=== PATIENT | male | born 1950 | race African-American/Black ===

== ENCOUNTER 2016-09-02 11:06 | Emergency (ER) | payer MEDICARE, MEDICAID ==
[~2016-09-02] VITALS: Ht 170.2 cm; Wt 59.0 kg
[~2016-09-02 11:06] MED LIST: flomax; vicodin
[2016-09-02] MEDS ORDERED: CARISOPRODOL 350 MG TABLET PO ONE (11:45)
[2016-09-02] MEDS ORDERED: HYDROCODONE/ACETAMINOPHEN 5/325MG TABLET PO ONE (11:45)
[2016-09-02 14:31] VITALS: BP 133/98
== END 2016-09-02 15:45 | disposition home or self-care (01) ==
LOC: ER 13:03
DX: M54.12 Radiculopathy, cervical region (principal); F12.10 Cannabis abuse, uncomplicated; F14.10 Cocaine abuse, uncomplicated
CPT/HCPCS: 72125; 99284

== ENCOUNTER 2016-10-31 14:56 | Emergency (ER) | payer MEDICARE, OTHER ==
[~2016-10-31] VITALS: Ht 172.7 cm; Wt 72.0 kg
[~2016-10-31 14:56] MED LIST changes: +IOHEXOL-300 100 ML BOTTLE ONE; +SODIUM CHLORIDE 0.9% 10ML VIAL ONE
[2016-10-31 16:17] LABS: BASOPHILS % 0.9 % (0.0-2.0); EOSINOPHILS % 2.7 % (0.0-5.0); HEMATOCRIT. 39.5 % (42.0-52.0); HEMOGLOBIN. 12.8 g/dL (14.0-18.0); LYMPHOCYTES % 18.3 % (20.0-50.0); MEAN CORPUSCULAR HEMOGLOBIN 27.5 pg (28.0-32.0); MEAN CORPUSCULAR HGB CONC 32.4 g/dL (31.0-37.0); MEAN PLATELET VOLUME 7.6 fl (7.4-10.4); MONOCYTES % 8.4 % (2.0-8.0); NEUTROPHILS % 69.7 % (40.0-76.0); PLATELET 253 x1000/uL (130-400); RED BLOOD CELL COUNT 4.64 mill/uL (4.7-6.1); RED CELL DISTRIBUTION WIDTH 13.1 % (11.6-14.6); WHITE BLOOD COUNT 7.9 x1000/uL (4.5-11.0)
[2016-10-31 16:18] LABS: CHLORIDE 106 mEq/L (98-107)
[2016-10-31 16:20] LABS: INDEX HEMOLYSI 1 (1-3); INDEX ICTERIC 1 (1-4); INDEX LIPEMIC 1 (1-3)
[2016-10-31 16:23] LABS: ANION GAP 10; CALCIUM 8.3 mg/dL (8.5-10.1); CARBON DIOXIDE 26 mEq/L (21-32); LIPASE 490 IU/L (73-393); UREA NITROGEN BLOOD 24 mg/dL (7-21)
[2016-10-31 16:25] LABS: eGFR > 60 mL/min (>60)
[2016-10-31] MEDS ORDERED: MORPHINE SULFATE 4 MG/ML CPJ (NOT FOR IM USE) IV ONE (17:15)
[2016-10-31 18:16] LABS: CLARITY URINE CLEAR (CLEAR); COLOR URINE YELLOW (YELLOW); GLUCOSE URINE NEGATIVE (NEGATIVE); KETONES URINE NEGATIVE (NEGATIVE); LEUKOCYTE ESTERASE URINE NEGATIVE (NEGATIVE); NITRITE URINE NEGATIVE (NEGATIVE); OCCULT BLOOD URINE 3+ (NEGATIVE); PROTEIN URINE NEGATIVE (NEGATIVE); SPECIFIC GRAVITY URINE 1.021 (1.005-1.030)
[2016-10-31 18:27] LABS: *AMPHETAMINES SCREEN URINE NEGATIVE (NEGATIVE); *BARBITURATES SCREEN URINE NEGATIVE (NEGATIVE); *BENZODIAZEPINES SCREEN URINE NEGATIVE (NEGATIVE); *COCAINE SCREEN URINE PRESUMTIVE POSITIVE (NEGATIVE); CANNABINOID URINE SCREEN NEGATIVE (NEGATIVE); ECSTASY MDMA SCREEN URINE NEGATIVE (NEGATIVE); METHADONE URINE SCREEN NEGATIVE (NEGATIVE); OPIATES URINE SCREEN NEGATIVE (NEGATIVE); PHENCYCLIDINE URINE SCREEN NEGATIVE (NEGATIVE)
[2016-10-31 18:59] LABS: BACTERIA URINE TRACE; SQUAMOUS EPITHELIAL CELL URINE RARE /lpf (RARE/1+); WBC URINE 0-2 /hpf (0-2)
[2016-10-31] MEDS ORDERED: SODIUM CHLORIDE 0.9% 1000ML BAG (SEPSIS BOLUS) IV ONE (20:45)
[2016-10-31 21:38] LABS: PROTHROMBIN TIME 10.7 sec
[2016-10-31 22:29] VITALS: BP 115/66
== END 2016-10-31 22:50 | disposition short-term general hospital (02) ==
LOC: ER 17:40
DX: S20.212A Contusion of left front wall of thorax, initial encounter (principal); W50.1XXA Accidental kick by another person, initial encounter; F17.210 Nicotine dependence, cigarettes, uncomplicated; Y93.89 Activity, other specified; Y92.9 Unspecified place or not applicable; Y99.8 Other external cause status
CPT/HCPCS: 36415; 71101; 71260; 74177; 80048; 80305; 81001; 83690; 85025; 85610; 86850; 86900; 86901; 96361; 96374; 99285; A4216; G0482; J2270; J7030; Q9967

== ENCOUNTER 2018-03-04 22:25 | Inpatient (IN) | payer MEDICARE, MEDICAID ==
[~2018-03-04] VITALS: Ht 170.2 cm; Wt 58.5 kg
[~2018-03-04 22:25] MED LIST changes: -IOHEXOL-300 100 ML BOTTLE ONE; -SODIUM CHLORIDE 0.9% 10ML VIAL ONE
[2018-03-05] MEDS ORDERED: SODIUM CHLORIDE 0.9% 1,000 ML IV ONE (00:18)
[2018-03-05] MEDS ORDERED: MORPHINE SULFATE 4 MG/ML CPJ (NOT FOR IM USE) IV STA (00:18)
[2018-03-05] MEDS ORDERED: ONDANSETRON HCL 4MG/2ML INJ IV STA (00:18)
[2018-03-05] MEDS ORDERED: DIATR MEGLU/DIATRIZOATE SOLN 30ML ONE (00:47)
[2018-03-05] MEDS ORDERED: METOCLOPRAMIDE HCL 10MG/2ML VIAL IV ONE (01:15)
[2018-03-05 01:28] LABS: BASOPHILS % 0.6 % (0.0-2.0); EOSINOPHILS % 0.5 % (0.0-5.0); HEMOGLOBIN. 13.1 g/dL (14.0-18.0); MEAN CORPUSCULAR HEMOGLOBIN 28.3 pg (28.0-32.0); MEAN CORPUSCULAR VOLUME 86.4 fL (80.0-94.0); MEAN PLATELET VOLUME 8.3 fl (7.4-10.4); MONOCYTES % 4.7 % (2.0-8.0); NEUTROPHILS % 82.2 % (40.0-76.0); PLATELET 282 x1000/uL (130-400); RED BLOOD CELL COUNT 4.62 mill/uL (4.7-6.1); RED CELL DISTRIBUTION WIDTH 13.1 % (11.6-14.6)
[2018-03-05 01:31] LABS: CHLORIDE 106 mEq/L (98-107)
[2018-03-05 01:34] LABS: PROTHROMBIN TIME 10.2 sec (9.1-11.1)
[2018-03-05] MEDS ORDERED: KETOROLAC 30MG/ML VIAL IV ONE (02:30)
[2018-03-05] MEDS ORDERED: LORAZEPAM 2MG/ML CPJ IV ONE (02:30)
[2018-03-05 03:12] LABS: CLARITY URINE CLEAR (CLEAR); COLOR URINE YELLOW (YELLOW); KETONES URINE 1+ (NEGATIVE); LEUKOCYTE ESTERASE URINE NEGATIVE (NEGATIVE); NITRITE URINE NEGATIVE (NEGATIVE); OCCULT BLOOD URINE NEGATIVE (NEGATIVE); PH URINE 5.5 (4.5-8.0); PROTEIN URINE NEGATIVE (NEGATIVE); UROBILINOGEN URINE 0.2 E.U./dL (0.2-1.0)
[2018-03-05] MEDS ORDERED: IOHEXOL-300 100 ML BOTTLE ONE (03:59)
[2018-03-05] MEDS ORDERED: SODIUM CHLORIDE 0.9% 1,000 ML IV SCH (05:16)
[2018-03-05] MEDS ORDERED: DIPHENHYDRAMINE 50MG/ML VIAL IV PRN (09:30)
[2018-03-05] MEDS: PANTOPRAZOLE SODIUM 40 MG/VIAL IV SCH (09:40)
[2018-03-05] MEDS: ONDANSETRON HCL 4MG/2ML INJ IV PRN ×2 (10:08→17:38)
[2018-03-05] MEDS: DEXT 5%/0.45% NACL KCL 20MEQ/L 1,000 ML IV SCH ×2 (10:44→17:38)
[2018-03-05] MEDS: MORPHINE SULFATE 4 MG/ML CPJ (NOT FOR IM USE) IV PRN (14:25)
[2018-03-05 15:13] VITALS: BP 161/81
[2018-03-05] MEDS ORDERED: IBUP-2321 PO (15:26)
[2018-03-05 16:00] VITALS: BP 161/81
[2018-03-05] MEDS ORDERED: HYDRALAZINE 20MG/ML VIAL IV PRN (16:00)
[2018-03-05 16:34] VITALS: BP 145/75
[2018-03-05 20:00] VITALS: BP 140/86
[2018-03-06] VITALS: BP 138/60
[2018-03-06] MEDS: DEXT 5%/0.45% NACL KCL 20MEQ/L 1,000 ML IV SCH ×2 (00:48→08:29)
[2018-03-06] MEDS: MORPHINE SULFATE 4 MG/ML CPJ (NOT FOR IM USE) IV PRN ×3 (02:32→14:55)
[2018-03-06 04:00] VITALS: BP 133/81
[2018-03-06 07:06] LABS: BASOPHILS % 0.3 % (0.0-2.0); EOSINOPHILS % 0.4 % (0.0-5.0); HEMATOCRIT. 41.4 % (42.0-52.0); LYMPHOCYTES % 13.6 % (20.0-50.0); MEAN CORPUSCULAR HEMOGLOBIN 28.8 pg (28.0-32.0); MEAN PLATELET VOLUME 8.4 fl (7.4-10.4); MONOCYTES % 11.8 % (2.0-8.0); NEUTROPHILS % 73.9 % (40.0-76.0); PLATELET 294 x1000/uL (130-400); RED BLOOD CELL COUNT 4.86 mill/uL (4.7-6.1)
[2018-03-06 07:19] LABS: CHLORIDE 101 mEq/L (98-107)
[2018-03-06 08:00] VITALS: BP 126/69
[2018-03-06] MEDS: PANTOPRAZOLE SODIUM 40 MG/VIAL IV SCH (08:28)
[2018-03-06 12:00] VITALS: BP 105/69
[2018-03-06] MEDS ORDERED: ACETAMINOPHEN 650MG SUPP PR PRN (14:45)
[2018-03-06 14:55] VITALS: BP 140/81
[2018-03-06] MEDS: POTASSIUM CHLORIDE INJ 30 MEQ in DEXT 5%/0.9% NACL 1,000 ML IV SCH (17:02)
[2018-03-06 20:00] VITALS: BP 150/87
[2018-03-07] VITALS (7 sets, daily range): BP systolic 105–145; BP diastolic 76–93
[2018-03-07] MEDS: MORPHINE SULFATE 4 MG/ML CPJ (NOT FOR IM USE) IV PRN ×3 (01:46→16:35)
[2018-03-07] MEDS: POTASSIUM CHLORIDE INJ 30 MEQ in DEXT 5%/0.9% NACL 1,000 ML IV SCH ×2 (05:13→15:19)
[2018-03-07 06:31] LABS: HEMATOCRIT. 41.1 % (42.0-52.0); HEMOGLOBIN. 13.9 g/dL (14.0-18.0); MEAN CORPUSCULAR HEMOGLOBIN 28.9 pg (28.0-32.0); MEAN CORPUSCULAR VOLUME 85.4 fL (80.0-94.0); MEAN PLATELET VOLUME 8.5 fl (7.4-10.4); PLATELET 292 x1000/uL (130-400); RED BLOOD CELL COUNT 4.82 mill/uL (4.7-6.1); RED CELL DISTRIBUTION WIDTH 12.7 % (11.6-14.6)
[2018-03-07 08:02] LABS: CHLORIDE 102 mEq/L (98-107)
[2018-03-07] MEDS: PANTOPRAZOLE SODIUM 40 MG/VIAL IV SCH (09:28)
[2018-03-07] MEDS: ONDANSETRON HCL 4MG/2ML INJ IV PRN (10:10)
[2018-03-08] MEDS: MORPHINE SULFATE 4 MG/ML CPJ (NOT FOR IM USE) IV PRN ×4 (00:02→22:09)
[2018-03-08] MEDS: POTASSIUM CHLORIDE INJ 30 MEQ in DEXT 5%/0.9% NACL 1,000 ML IV SCH (01:55)
[2018-03-08 03:50] VITALS: BP 133/70
[2018-03-08] MEDS ORDERED: BUPIVACAINE HCL 0.5% (5MG/ML) 50ML ONE (07:28)
[2018-03-08] MEDS ORDERED: SKIN ADHESIVE 0.7 GM EA TOP ONE (07:28)
[2018-03-08 08:00] VITALS: BP 148/87
[2018-03-08] MEDS: FAMOTIDINE 20MG/2ML VIAL IV SCH ×2 (08:01→22:09)
[2018-03-08] MEDS ORDERED: ACETAMINOPHEN 650MG SUPP PR PRN (09:45)
[2018-03-08] MEDS ORDERED: ONDANSETRON HCL 4MG/2ML INJ IV PRN (09:45)
[2018-03-08] MEDS ORDERED: FENTANYL CITRATE/PF 50MCG/ML 5ML VIAL ONE (10:10)
[2018-03-08] MEDS ORDERED: MIDAZOLAM HCL 2 MG/2 ML VIAL ONE (10:10)
[2018-03-08] MEDS ORDERED: ONDANSETRON HCL 4MG/2ML INJ ONE (10:53)
[2018-03-08] MEDS ORDERED: DEXAMETHASONE 4MG/ML 1ML VIAL ONE (10:53)
[2018-03-08] MEDS ORDERED: CEFAZOLIN SODIUM 1000MG/VIAL ONE (10:53)
[2018-03-08] MEDS ORDERED: KETOROLAC 30MG/ML VIAL ONE (10:53)
[2018-03-08] MEDS ORDERED: METOCLOPRAMIDE HCL 10MG/2ML VIAL ONE (10:53)
[2018-03-08] MEDS ORDERED: LIDOCAINE HCL/PF 1% 10 MG/ML 5ML VIAL ONE (10:53)
[2018-03-08] MEDS ORDERED: ETOMIDATE 2MG/ML 10ML VIAL IV ONE (10:53)
[2018-03-08] MEDS ORDERED: VECURONIUM BROMIDE 10 MG/VIAL IV ONE (10:53)
[2018-03-08] MEDS ORDERED: GLYCOPYRROLATE 0.2 MG/ML 2ML VIAL ONE (10:54)
[2018-03-08] MEDS ORDERED: NEOSTIGMINE METHYLSULFATE 1MG/ML 10 ML VIAL ONE (10:54)
[2018-03-08] MEDS ORDERED: FENTANYL CITRATE/PF 50MCG/ML 2ML VIAL ONE (11:18)
[2018-03-08] MEDS ORDERED: DIPHENHYDRAMINE 50MG/ML VIAL ONE (11:23)
[2018-03-08] MEDS ORDERED: FENTANYL CITRATE/PF 50MCG/ML 2ML VIAL IV PRN (11:30)
[2018-03-08 12:00] VITALS: BP 127/83
[2018-03-08] MEDS: DEXT 5%/0.45% NACL KCL 20MEQ/L 1,000 ML IV SCH ×2 (14:51→22:10)
[2018-03-08 16:00] VITALS: BP 119/78
[2018-03-08 20:00] VITALS: BP 113/70
[2018-03-09] VITALS (7 sets, daily range): BP systolic 110–121; BP diastolic 69–81
[2018-03-09] MEDS: MORPHINE SULFATE 4 MG/ML CPJ (NOT FOR IM USE) IV PRN ×3 (04:55→22:14)
[2018-03-09] MEDS: DEXT 5%/0.45% NACL KCL 20MEQ/L 1,000 ML IV SCH ×2 (06:37→16:24)
[2018-03-09] MEDS: FAMOTIDINE 20MG/2ML VIAL IV SCH ×3 (09:00→22:08)
[2018-03-09 11:43] LABS: BASOPHILS % 0.3 % (0.0-2.0); EOSINOPHILS % 0.5 % (0.0-5.0); HEMATOCRIT. 39.9 % (42.0-52.0); HEMOGLOBIN. 13.4 g/dL (14.0-18.0); LYMPHOCYTES % 8.8 % (20.0-50.0); MEAN CORPUSCULAR HEMOGLOBIN 28.9 pg (28.0-32.0); MEAN CORPUSCULAR VOLUME 85.8 fL (80.0-94.0); MEAN PLATELET VOLUME 8.4 fl (7.4-10.4); MONOCYTES % 14.9 % (2.0-8.0); NEUTROPHILS % 75.5 % (40.0-76.0); PLATELET 290 x1000/uL (130-400); RED BLOOD CELL COUNT 4.65 mill/uL (4.7-6.1); RED CELL DISTRIBUTION WIDTH 12.6 % (11.6-14.6)
[2018-03-09 11:59] LABS: CHLORIDE 100 mEq/L (98-107)
[2018-03-09 14:08] LABS: PLATELET ESTIMATE NORMAL
[2018-03-09] MEDS: DEXT 5%/0.9% NACL 1,000 ML IV SCH (21:56)
[2018-03-10] VITALS: BP 115/70
[2018-03-10 04:00] VITALS: BP 115/60
[2018-03-10] MEDS: DEXT 5%/0.9% NACL 1,000 ML IV SCH ×2 (05:19→17:55)
[2018-03-10] MEDS: MORPHINE SULFATE 4 MG/ML CPJ (NOT FOR IM USE) IV PRN ×3 (06:03→23:06)
[2018-03-10 08:00] VITALS: BP 128/76
[2018-03-10] MEDS: FAMOTIDINE 20MG/2ML VIAL IV SCH ×2 (09:08→21:19)
[2018-03-10 12:00] VITALS: BP 130/77
[2018-03-10 16:00] VITALS: BP 114/61
[2018-03-10 20:00] VITALS: BP 105/66
[2018-03-11] VITALS: BP 102/75
[2018-03-11] MEDS: DEXT 5%/0.9% NACL 1,000 ML IV SCH ×3 (01:49→22:37)
[2018-03-11 04:00] VITALS: BP 110/78
[2018-03-11 08:00] VITALS: BP 128/76
[2018-03-11] MEDS: MORPHINE SULFATE 4 MG/ML CPJ (NOT FOR IM USE) IV PRN ×2 (09:24→14:52)
[2018-03-11] MEDS: FAMOTIDINE 20MG/2ML VIAL IV SCH ×2 (09:24→20:56)
[2018-03-11 12:00] VITALS: BP 131/81
[2018-03-11 15:55] VITALS: BP 147/78
[2018-03-11 20:00] VITALS: BP 137/84
[2018-03-11] MEDS: ONDANSETRON HCL 4MG/2ML INJ IV PRN (21:47)
[2018-03-12] VITALS: BP 102/67
[2018-03-12] MEDS: MORPHINE SULFATE 4 MG/ML CPJ (NOT FOR IM USE) IV PRN ×3 (00:45→22:43)
[2018-03-12 04:00] VITALS: BP 100/66
[2018-03-12 07:13] LABS: HEMATOCRIT. 34.7 % (42.0-52.0); HEMOGLOBIN. 11.5 g/dL (14.0-18.0); MEAN CORPUSCULAR HEMOGLOBIN 28.5 pg (28.0-32.0); MEAN CORPUSCULAR VOLUME 85.6 fL (80.0-94.0); MEAN PLATELET VOLUME 7.8 fl (7.4-10.4); PLATELET 361 x1000/uL (130-400); RED BLOOD CELL COUNT 4.05 mill/uL (4.7-6.1); RED CELL DISTRIBUTION WIDTH 12.6 % (11.6-14.6)
[2018-03-12 07:54] VITALS: BP 130/67
[2018-03-12] MEDS: FAMOTIDINE 20MG/2ML VIAL IV SCH ×2 (08:09→20:42)
[2018-03-12] MEDS: DEXT 5%/0.9% NACL 1,000 ML IV SCH ×3 (08:09→20:42)
[2018-03-12 09:17] LABS: CHLORIDE 105 mEq/L (98-107)
[2018-03-12 12:00] VITALS: BP 128/84
[2018-03-12 16:00] VITALS: BP 117/74
[2018-03-12 20:00] VITALS: BP 138/81
[2018-03-13] VITALS: BP 130/69
[2018-03-13 04:00] VITALS: BP 127/77
[2018-03-13] MEDS: DEXT 5%/0.9% NACL 1,000 ML IV SCH ×2 (04:30→17:28)
[2018-03-13 08:19] VITALS: BP 132/85
[2018-03-13 08:42] LABS: PLATELET ESTIMATE NORMAL
[2018-03-13] MEDS: FAMOTIDINE 20MG/2ML VIAL IV SCH ×2 (09:36→20:50)
[2018-03-13] MEDS: MORPHINE SULFATE 4 MG/ML CPJ (NOT FOR IM USE) IV PRN (09:36)
[2018-03-13 11:30] VITALS: BP 138/83
[2018-03-13 15:51] VITALS: BP 134/89
[2018-03-13] MEDS ORDERED: MORPHINE SULFATE 4 MG/ML CPJ (NOT FOR IM USE) IV PRN (17:30)
[2018-03-13 20:00] VITALS: BP 119/87
[2018-03-14] VITALS: BP 140/89
[2018-03-14 04:00] VITALS: BP 128/85
[2018-03-14] MEDS: DEXT 5%/0.9% NACL 1,000 ML IV SCH ×2 (05:42→22:46)
[2018-03-14 08:00] VITALS: BP 112/79
[2018-03-14] MEDS: FAMOTIDINE 20MG/2ML VIAL IV SCH ×2 (09:40→21:00)
[2018-03-14 11:47] VITALS: BP 134/74
[2018-03-14 16:00] VITALS: BP 135/89
[2018-03-14 20:00] VITALS: BP 134/89
[2018-03-15 00:16] VITALS: BP 116/67
[2018-03-15 04:00] VITALS: BP 122/76
[2018-03-15 08:00] VITALS: BP 103/72
[2018-03-15] MEDS: FAMOTIDINE 20MG/2ML VIAL IV SCH (08:30)
[2018-03-15] MEDS: DEXT 5%/0.9% NACL 1,000 ML IV SCH (08:32)
== END 2018-03-15 14:15 | disposition left against medical advice (07) | DRG 335 ==
LOC: ER 22:38 → 8WST 03-05 05:18 → EDBEDREQ 03-05 05:20 → ENRESERV 03-05 14:07
PROVIDERS: ADMIT Internal Medicine; ATTEND Internal Medicine
PROC: 0DN80ZZ Release Small Intestine, Open Approach (ICD-10-PCS; principal; 2018-03-08 09:30)
DX: K56.51 Intestinal adhesions [bands], with partial obstruction (principal); K65.9 Peritonitis, unspecified; K56.7 Ileus, unspecified; I10 Essential (primary) hypertension; Z53.21 Procedure and treatment not carried out due to patient leaving prior to being seen by health care provider; M17.0 Bilateral primary osteoarthritis of knee; Z90.81 Acquired absence of spleen; Z79.899 Other long term (current) drug therapy
CPT/HCPCS: 36415; 74018; 74177; 80048; 80053; 81003; 83605; 83690; 83735; 84100; 85025; 85610; 87077; 96361; 96374; 96375; 97162; 99291; C1893; C2617; C9113; J0690; J1100; J1200; J1885; J2060; J2250; J2270; J2405; J2710; J2765; J3010; J3480; J3490; J7030; J7042; Q9963; Q9967

== ENCOUNTER 2019-02-07 20:43 | Emergency (ER) | payer BC, MEDICAID ==
[~2019-02-07] VITALS: Ht 167.6 cm; Wt 75.0 kg
[~2019-02-07 20:43] MED LIST changes: +IBUP-2321 PO; -flomax; -vicodin
[2019-02-07] MEDS ORDERED: MORPHINE SULFATE 4 MG/ML CPJ (NOT FOR IM USE) IV STA (21:24)
[2019-02-07] MEDS ORDERED: ONDANSETRON HCL 4MG/2ML INJ IV STA (21:24)
[2019-02-07] MEDS ORDERED: FAMOTIDINE 20MG/2ML VIAL IV ONE (21:30)
[2019-02-07 21:44] LABS: CHLORIDE 110 mEq/L (98-107)
[2019-02-07 21:46] LABS: BASOPHILS % 1.4 % (0.0-2.0); EOSINOPHILS % 3.1 % (0.0-5.0); HEMATOCRIT. 39.2 % (42.0-52.0); HEMOGLOBIN. 12.8 g/dL (14.0-18.0); LYMPHOCYTES % 29.2 % (20.0-50.0); MEAN CORPUSCULAR HEMOGLOBIN 28.3 pg (28.0-32.0); MEAN CORPUSCULAR VOLUME 86.6 fL (80.0-94.0); MEAN PLATELET VOLUME 8.2 fl (7.4-10.4); MONOCYTES % 9.5 % (2.0-8.0); NEUTROPHILS % 56.8 % (40.0-76.0); PARTIAL THROMBOPLASTIN TIME 26.3 sec (23.4-31.0); PLATELET 259 x1000/uL (130-400); PROTHROMBIN TIME 9.9 sec (9.6-11.0); RED BLOOD CELL COUNT 4.53 mill/uL (4.7-6.1); RED CELL DISTRIBUTION WIDTH 13.9 % (11.6-14.6)
[2019-02-07 21:51] LABS: ETHANOL BLOOD < 10 mg/dL
[2019-02-08] MEDS ORDERED: ACETAMINOPHEN 325MG TABLET PO PRN (02:45)
[2019-02-08] MEDS ORDERED: ONDANSETRON HCL 4MG/2ML INJ IV PRN (02:45)
[2019-02-08] MEDS ORDERED: DOCUSATE SODIUM 100MG CAPSULE PO PRN (02:45)
[2019-02-08] MEDS ORDERED: CLONIDINE 0.1MG TABLET PO PRN (02:45)
[2019-02-08] MEDS ORDERED: MORPHINE SULFATE 2 MG/ML CPJ (NOT FOR IM USE) IV PRN (02:45)
[2019-02-08] MEDS ORDERED: ENOXAPARIN 40MG/0.4ML SYR SUBCUT SCH (02:45)
[2019-02-08] MEDS ORDERED: HYDROCODONE/ACETAMINOPHEN 5/325MG TABLET PO PRN (02:45)
[2019-02-08 02:51] LABS: CLARITY URINE CLEAR (CLEAR); COLOR URINE YELLOW (YELLOW); KETONES URINE NEGATIVE (NEGATIVE); LEUKOCYTE ESTERASE URINE NEGATIVE (NEGATIVE); NITRITE URINE NEGATIVE (NEGATIVE); OCCULT BLOOD URINE NEGATIVE (NEGATIVE); PROTEIN URINE NEGATIVE (NEGATIVE); SPECIFIC GRAVITY URINE 1.025 (1.005-1.030)
[2019-02-08 03:05] LABS: *AMPHETAMINES SCREEN URINE NEGATIVE (NEGATIVE); *BARBITURATES SCREEN URINE NEGATIVE (NEGATIVE); *BENZODIAZEPINES SCREEN URINE NEGATIVE (NEGATIVE); *COCAINE SCREEN URINE PRESUMTIVE POSITIVE (NEGATIVE); METHADONE URINE SCREEN NEGATIVE (NEGATIVE); OPIATES URINE SCREEN PRESUMTIVE POSITIVE (NEGATIVE)
[2019-02-08 03:06] LABS: CANNABINOID URINE SCREEN NEGATIVE (NEGATIVE); PHENCYCLIDINE URINE SCREEN NEGATIVE (NEGATIVE)
[2019-02-08 03:51] VITALS: BP 127/77
[2019-02-08] MEDS ORDERED: AMLODIPINE 10MG TABLET PO SCH (09:00)
[2019-02-08] MEDS ORDERED: ASPIRIN 81MG EC TABLET PO SCH (09:00)
== END 2019-02-08 04:18 | disposition short-term general hospital (02) ==
LOC: ER 20:43 → EDBEDREQTM 02-08 01:04 → EDBEDREQ 02-08 01:04 → EDBEDREQDT 02-08 01:04 → CANRESERV 02-08 01:14 → ENRESERV 02-08 01:14 → CANRESERV 02-08 01:33 → ENRESERV 02-08 01:33 → SUPCPDRO 02-08 02:40 → ER 02-08 04:18 → CANBEDREQ 02-08 16:03
DX: R07.2 Precordial pain (principal); R05 Cough; R06.02 Shortness of breath; F17.200 Nicotine dependence, unspecified, uncomplicated
CPT/HCPCS: 36415; 71045; 80053; 80305; 80320; 81003; 83690; 83880; 84484; 85025; 85610; 85730; 93005; 96374; 96375; 99285; J2270; J2405; J3490; G0480

== ENCOUNTER 2019-04-11 08:58 | Emergency (ER) | payer MEDICARE, MEDICAID ==
[~2019-04-11] VITALS: Ht 172.7 cm; Wt 75.0 kg
[2019-04-11] MEDS ORDERED: IBUPROFEN 600MG TABLET PO ONE (09:30)
[2019-04-11] MEDS ORDERED: CYCLOBENZAPRINE 10MG TABLET PO SCH (09:30)
[2019-04-11 11:03] VITALS: BP 155/84
== END 2019-04-11 10:59 | disposition home or self-care (01) ==
LOC: ER 08:58
DX: S80.12XA Contusion of left lower leg, initial encounter (principal); T14.8XXA Other injury of unspecified body region, initial encounter; M17.11 Unilateral primary osteoarthritis, right knee; V49.50XA Passenger injured in collision with unspecified motor vehicles in traffic accident, initial encounter; Y93.89 Activity, other specified; Y92.410 Unspecified street and highway as the place of occurrence of the external cause; R03.0 Elevated blood-pressure reading, without diagnosis of hypertension
CPT/HCPCS: 73562; 73590; 99283

== ENCOUNTER 2020-06-23 00:16 | Emergency (ER) | payer BC, MEDICAID ==
[~2020-06-23] VITALS: Ht 170.2 cm; Wt 87.0 kg
[2020-06-23] MEDS ORDERED: HYDROCODONE/ACETAMINOPHEN 5/325MG TABLET PO ONE (01:30)
[2020-06-23] MEDS ORDERED: LIDOCAINE HCL/PF 1% 10 MG/ML 5ML VIAL IJ ONE (01:45)
[2020-06-23] MEDS ORDERED: MORPHINE SULFATE 10 MG/ML CPJ IM ONE (02:30)
[2020-06-23 03:01] VITALS: BP 142/84
== END 2020-06-23 03:16 | disposition home or self-care (01) ==
LOC: ER 00:16
DX: S93.121A Dislocation of metatarsophalangeal joint of right great toe, initial encounter (principal); V43.54XA Car driver injured in collision with van in traffic accident, initial encounter; Y93.89 Activity, other specified; Y92.488 Other paved roadways as the place of occurrence of the external cause
CPT/HCPCS: 73630; 96372; 99283; J2270; J3490

== ENCOUNTER 2020-10-11 16:37 | Emergency (ER) | payer BC, MEDICAID ==
[~2020-10-11] VITALS: Ht 167.6 cm; Wt 77.0 kg
[2020-10-11] MEDS ORDERED: KETOROLAC 60MG/2ML VIAL IM ONE (19:30)
[2020-10-11] MEDS ORDERED: ACETAMINOPHEN 500MG TABLET PO ONE (21:45)
[2020-10-11 22:04] VITALS: BP 110/58
== END 2020-10-11 22:11 | disposition home or self-care (01) ==
LOC: ER 16:37
DX: M19.011 Primary osteoarthritis, right shoulder (principal); G89.29 Other chronic pain; R10.31 Right lower quadrant pain; N40.0 Benign prostatic hyperplasia without lower urinary tract symptoms; Z90.81 Acquired absence of spleen
CPT/HCPCS: 71045; 73030; 96372; 99284; J1885

== ENCOUNTER 2021-12-14 20:55 | Emergency (ER) | payer BC, MEDICAID ==
[~2021-12-14] VITALS: Ht 170.2 cm; Wt 73.0 kg
[2021-12-14] MEDS ORDERED: ASPIRIN 81MG TABLET PO ONE (22:00)
[2021-12-14] MEDS ORDERED: IBUPROFEN 400MG TABLET PO ONE (22:00)
[2021-12-14 22:42] LABS: HEMATOCRIT. 44.9 % (42.0-52.0); HEMOGLOBIN. 14.5 g/dL (14.0-18.0); MEAN CORPUSCULAR VOLUME 86.8 fL (80.0-94.0); MEAN PLATELET VOLUME 8.1 fl (7.4-10.4); PLATELET 277 x1000/uL (130-400); RED BLOOD CELL COUNT 5.17 mill/uL (4.7-6.1); RED CELL DISTRIBUTION WIDTH 13.4 % (11.6-14.6)
[2021-12-14 22:48] LABS: CHLORIDE 105 mEq/L (98-107)
[2021-12-14 23:33] LABS: PLATELET ESTIMATE NORMAL
[2021-12-15 01:39] VITALS: BP 140/74
== END 2021-12-15 01:39 | disposition home or self-care (01) ==
LOC: ER 20:55
DX: R06.02 Shortness of breath (principal); M79.18 Myalgia, other site
CPT/HCPCS: 36415; 71045; 80053; 83880; 84484; 85025; 93005; 99285